=== PATIENT | female | born 1965 | race Caucasian/White ===

== ENCOUNTER 2017-12-10 14:27 | Emergency (ER) | payer MEDICAID ==
[~2017-12-10] VITALS: Ht 167.6 cm; Wt 56.0 kg
[2017-12-10 15:13] LABS: BASOPHILS # (AUTO) 0.03 x10^3/uL (0-0.1); BASOPHILS % (AUTO) 1 % (0-1); EOSINOPHILS # (AUTO) 0.16 x10^3/uL (0-0.4); EOSINOPHILS % (AUTO) 3 % (1-7); LYMPHOCYTES # (AUTO) 2.69 x10^3/uL (1-3.4); LYMPHOCYTES % (AUTO) 44 % (22-44); MD NO; MEAN CORPUSCULAR HGB CONC 33.6 g/dL (32.4-35.8); MEAN CORPUSCULAR VOLUME 92.3 fL (80-100); MEAN PLATELET VOLUME 8.1 fL (7.4-10.4); MONOCYTES # (AUTO) 0.42 x10^3/uL (0.2-0.8); MONOCYTES % (AUTO) 7 % (2-9); NEUTROPHILS # (AUTO) 2.89 x10^3/uL (1.8-6.8); NEUTROPHILS % (AUTO) 47 % (42-75); PLATELET COUNT 232 x10^3/uL (130-400); RED BLOOD COUNT 4.71 x10^6/uL (3.82-5.3); RED CELL DISTRIBUTION WIDTH 12.5 % (9.6-15.2)
[2017-12-10 15:24] LABS: ALBUMIN 4.9 g/dL (3.4-5.0); ANION GAP 12 mmol/L (5-15); CALCIUM 9.4 mg/dL (8.5-10.1); CHLORIDE 105 mmol/L (98-107)
[2017-12-10] MEDS ORDERED: LORazepam 2 MG/ML, 1ML ONE (17:42)
[2017-12-10] MEDS ORDERED: LORazepam 2 MG/ML, 1ML IM ONE (18:00)
[2017-12-10 18:40] VITALS: BP 128/76
[2017-12-10] MEDS ORDERED: VITA1TAB19 PO (18:46)
[2017-12-10] MEDS ORDERED: TEMA15CA PO (18:46)
[2017-12-10] MEDS ORDERED: SERT50TA PO (18:46)
[2017-12-10] MEDS ORDERED: IBUP-1484 PO (18:46)
[2017-12-10] MEDS ORDERED: MULT-516 PO (18:46)
[2017-12-10] MEDS ORDERED: primrose oil PO (18:46)
[2017-12-10] MEDS ORDERED: ASCO500C2 PO (18:46)
== END 2017-12-10 19:03 | disposition home or self-care (01) ==
LOC: ED 18:57
DX: S16.1XXA Strain of muscle, fascia and tendon at neck level, initial encounter (principal); I45.81 Long QT syndrome; X58.XXXA Exposure to other specified factors, initial encounter; Y93.9 Activity, unspecified; Y92.89 Other specified places as the place of occurrence of the external cause; Y99.8 Other external cause status
CPT/HCPCS: 36415; 71045; 72050; 72141; 80048; 82040; 85025; 93005; 96372; 99285; J2060

== ENCOUNTER 2018-09-12 11:56 | Emergency (ER) | payer MEDICAID ==
[~2018-09-12] VITALS: Ht 167.6 cm; Wt 58.0 kg
[~2018-09-12 11:56] MED LIST: ASCO500C2 PO; IBUP-1484 PO; MULT-516 PO; SERT50TA PO; TEMA15CA PO; VITA1TAB19 PO; primrose oil PO
--- NOTE | 2018-09-12 12:54 | NUR ---
preceptor note: pt presents to ED with c/o dizziness (describes as vertigo) x 2 days, also notes 3/10 right sided CP described as pressure. pt notes she has hx anxiety and is perimenopausal, with recent increase in stressors. PIV placed, labs drawn and sent to lab. all monitors in place. pt to have CTA. pt updated with POC, awaiting labs, CTA, and dispo.
[2018-09-12 13:05] LABS: BASOPHILS # (AUTO) 0.02 x10^3/uL (0-0.1); BASOPHILS % (AUTO) 1 % (0-1); EOSINOPHILS # (AUTO) 0.09 x10^3/uL (0-0.4); EOSINOPHILS % (AUTO) 2 % (1-7); LYMPHOCYTES # (AUTO) 1.37 x10^3/uL (1-3.4); LYMPHOCYTES % (AUTO) 33 % (22-44); MD NO; MEAN CORPUSCULAR HEMOGLOBIN 31.3 pg (27.0-34.8); MEAN CORPUSCULAR HGB CONC 33.2 g/dL (32.4-35.8); MEAN CORPUSCULAR VOLUME 94.2 fL (80-100); MEAN PLATELET VOLUME 7.7 fL (7.4-10.4); MONOCYTES # (AUTO) 0.34 x10^3/uL (0.2-0.8); MONOCYTES % (AUTO) 8 % (2-9); NEUTROPHILS # (AUTO) 2.34 x10^3/uL (1.8-6.8); NEUTROPHILS % (AUTO) 56 % (42-75); PLATELET COUNT 232 x10^3/uL (130-400); RED CELL DISTRIBUTION WIDTH 12.9 % (9.6-15.2)
[2018-09-12 13:08] LABS: ALBUMIN 4.2 g/dL (3.4-5.0); ANION GAP 6 mmol/L (5-15); CALCIUM 9.7 mg/dL (8.5-10.1); CHLORIDE 108 mmol/L (98-107); CREATININE 0.89 mg/dL (0.55-1.02)
[2018-09-12 13:14] LABS: TROPONIN I < 0.015 ng/mL (0.000-0.045)
--- NOTE | 2018-09-12 13:49 | NUR ---
PT BACK TO ROOM FROM CT.
--- NOTE | 2018-09-12 13:53 | NUR ---
pt resting in gurney. pt aox4. resps even and unlabored. pt's family at bedside. pt denies any needs and concerns at this time.
[2018-09-12] MEDS ORDERED: OMNIPAQUE 350 MG/ML, 100ML BOTTLE ONE (13:54)
--- NOTE | 2018-09-12 14:11 | NUR ---
RAJINDER DERAS AT BEDSIDE TO EXPLAIN RESULTS AND POC
[2018-09-12 14:51] VITALS: BP 118/83
[2018-09-12] MEDS ORDERED: INSULIN REGULAR 100 UNITS/ML, 3ML VIAL ONE (15:47)
== END 2018-09-12 14:53 | disposition home or self-care (01) ==
LOC: ED 14:08
DX: R42 Dizziness and giddiness (principal); R11.2 Nausea with vomiting, unspecified
CPT/HCPCS: 36415; 70450; 70498; 71045; 80048; 82040; 84484; 85025; 93005; 99284; Q9967